=== PATIENT | female | born 1985 | race Caucasian/White ===

== ENCOUNTER 2018-02-06 13:27 | Inpatient (IN) ==
[2018-02-06 16:16] LABS: Hematocrit [HCT] 35.9 % (37.0-47.0); Hemoglobin [HGB] 12.2 g/dL (12.0-16.0); MEAN CORPUSCULAR HEMOGLOBIN 29.7 PG (27-31); MEAN CORPUSCULAR VOLUME 87.3 FL (81-99); MEAN PLATELET VOLUME 11.8 FL (7.4-12.2); RED BLOOD COUNT 4.11 10^6/uL (4.20-5.40)
[2018-02-06 16:27] LABS: BLOOD UREA NITROGEN 7 mg/dL (7-22); SERUM ALBUMIN 3.6 g/dL (3.5-4.8)
[2018-02-06] MEDS ORDERED: Lactated Ringers 1,000 ML PRIMARY IV ONE (16:32)
--- NOTE | 2018-02-06 16:51 | DI ---
US OB Biophys Profile w/NST,02/06/2018 3:28 PM: Clinical History: Abnormal nonstress test. Previous Exam: January 30, 2018 Findings: Multiple grayscale and color Doppler sonographic images are obtained through the pelvis, and demonstr ate a single live intrauterine gestation with detected Doppler heart tones of 146 beats per minute. T here is normal respiratory motion of the hemidiaphragms. Amniotic fluid index is normal measuring 15.3 cm. The placenta is grade 2 and anterior. Impression: Single live intrauterine gestation with biophysical profile of 05/31.
--- NOTE | 2018-02-06 16:56 | OB.PROGRES ---
Interval History: The patient is a 32-year-old white female at 37-5/7 weeks who called this morning stating that she didn't fill well over the weekend and took her blood pressure was mildly elevated. The patient also states that she had a headache yesterday which finally resolved last night after taking 2 doses of Tylenol. The patient was feeling much better this morning but called the office to inform us of the above. I asked the patient to come in for her nonstress test. On the way in to labor and delivery while driving, the patient developed a headache behind her right eye. She has not taken Tylenol today. The patient states that she just does not feel very well. No nausea or vomiting. No fever or chills. No abdominal pain. No regular contractions. Baby is moving well. The patient didn't bring her blood pressure monitor in from home to compare it to here. The patient does have a history of C-sections 2. She has an anterior placenta. She also had a 24-hour urine for total protein which was elevated this . The patient has a history of gestational hypertension with both her first and second full-term . She does not have a history of preeclampsia. However, now the patient does have proteinuria but has not had an elevated blood pressure this . Past medical history benign Past surgical history hand surgery, laparoscopic cholecystectomy, x2 No known drug allergies No alcohol, tobacco, no drugs Patient's last Pap smear was December 2015 and was normal with negative HPV.Patient did have an abnormal Pap smear in 2007 and then has had several Pap smears since that time that were normal. OB history with a history of a section for arrest of dilation in December 2013. Patient then had a repeat in May 2016. Patient also had gestational hypertension in her first and then the patient presented at the end of her last full-term with high blood pressures and had a at that time. The patient did not have a diagnosis of preeclampsia. Therefore, gestational hypertension. Objective - Cervical Exam Cervical Exam: Deferred [place]: No regular contractions. No significant contractions. Heart Rate Interpretation Category: Category II (Some accelerations but did not meet criteria of 15 x 15 with 2 and 20 minutes. Minimal to moderate variability. Biophysical profile completed and it was 8 out of 8. UMER was 15 cm. Placenta was grade 2.) - Labs CBC and BMP: 02/06/18 16:14 02/06/18 16:14 - Additional Details Additional Details: Nontoxic-appearing Lungs clear to auscultation Heart regular rate and rhythm Abdomen is gravid, soft, no guarding or rebound and nontender Reflexes are 1+ patellar tendon bilaterally No clonus Assessment and Plan - Assessment / Plan Additional Assessment/Plan Details: Assessment: IUP 37-5/7 weeks with proteinuria and history of gestational hypertension. Blood Pressures today have been normal. Blood pressures have been 109/72, 120/76, 125/66, her 72, 119/78. Patient called stating she was not feeling well this weekend but better this morning. This afternoon, the patient stated she had a headache behind her right eye but did not take Tylenol. No fever or chills. CBC and CMP are normal. White count is normal, no hemoconcentration and platelets are 189,000. Creatinine is 0.5 and LFTs are normal. Exam is normal. NST was nonreactive but there was some variability. Biophysical profile was 8 out of 8 with an UMER of 15 cm. Placenta was grade 2. The patient specific gravity was 1.020 and patient stated she was not drinking as much today. The patient has a history of 2 with the first being arrest of dilation and then the second for repeat . The patient does not appear toxic today but does have a headache. Her blood pressures are normal. Additionally, the initial NST was nonreactive but the biophysical profile was 8 out of 8. The patient was placed back on the monitor. Plan: I would like to observe the patient. Start an IV and give her a fluid bolus. I would like to then treat her headache and determine if the headaches resolved. I would like to check a CBC and a CMP in the morning. Continuous monitoring. If the patient is feeling much better this evening, the patient may be discharged but otherwise I will keep her until tomorrow morning. Blood pressures intermittently will be taken. Promethazine 25 mg tablet by mouth for nausea but also for treatment of headache along with 2 regular strength Tylenol will be administered
[2018-02-06] MEDS ORDERED: LIDOCAINE W/ SODIUM BICARB 0.5 ML SYR SUBD PRN (17:14)
[2018-02-06] MEDS ORDERED: ONDANSETRON 4 MG/2 ML VIAL IVP PRN (17:14)
[2018-02-06] MEDS ORDERED: Ondansetron ODT Tab 4 MG TAB PO PRN (17:14)
[2018-02-06] MEDS ORDERED: NORMAL SALINE 10 ML SYRINGE FLUSH IVP PRN (17:14)
[2018-02-06] MEDS: ACETAMINOPHEN 500 MG TABLET PO PRN (18:10)
[2018-02-06] MEDS: Promethazine Tab 25 MG TAB PO PRN ×2 (18:10→23:55)
[2018-02-06] MEDS: Lactated Ringers 1,000 ML PRIMARY IV SCH (19:24)
--- NOTE | 2018-02-06 23:23 | OB.PROGRES ---
Interval History: The patient states that her headache is improved but still present. It is not behind her eyes like it was. Initially the headache was behind her right eye and then moved to behind her left eye but now she just has a dull headache. She would rate it 4 out of 10. Her nausea is not constant now been intermittent. The patient is concerned that she has had these symptoms intermittently for the past month but more common leak over the past 10 days. She is glad that she is feeling better now compared to 4-6 hours ago. Objective - Cervical Exam Cervical Exam: Deferred Heart Rate Interpretation Category: Category I (Good accelerations.) - Labs CBC and BMP: 02/06/18 16:14 02/06/18 16:14 - Vital Signs Last Taken Vital Signs: Vital Signs - Last Taken Temperature 98.3 F 02/06/18 18:45 Pulse Rate 85 02/06/18 22:00 Respiratory Rate 16 02/06/18 18:45 Blood Pressure 116/67 02/06/18 22:00 - Additional Details Additional Details: Nontoxic-appearing Assessment and Plan - Assessment / Plan Additional Assessment/Plan Details: Assessment: IUP 37-5/7 weeks with headache that is improving with history of gestational hypertension with both pregnancies but blood pressures have been normal today. The patient also has proteinuria in that she has had for multiple weeks now. 24 urine for total protein was elevated at 344 mg. Labs were normal earlier. Plan: Continue to observe and check a CBC, CMP, amylase and lipase in the morning. Evaluate how the patient is feeling in the morning. The patient informed me that she would like a repeat if she is still not feeling well. She is concerned that something possibly may be occurring that is not good. The patient is glad that she is feeling better and would like to wait until the morning to determine how she is feeling. Blood pressure checks will continue intermittently and continuous monitoring.
[2018-02-07] MEDS: Lactated Ringers 1,000 ML PRIMARY IV SCH ×2 (03:34→11:24)
[2018-02-07] MEDS: ACETAMINOPHEN 500 MG TABLET PO PRN (03:35)
[2018-02-07] MEDS ORDERED: ACETAMINOPHEN 500 MG TABLET PO ONE (03:43)
[2018-02-07] MEDS ORDERED: ACETAMINOPHEN 500 MG TABLET PO PRN (03:44)
[2018-02-07 08:51] LABS: BASOPHILS # (AUTO) 0.03 10*3/UL; BASOPHILS % (AUTO) 0.3 % (0-1); EOSINOPHILS # (AUTO) 0.26 10*3/UL; Hematocrit [HCT] 36.5 % (37.0-47.0); Hemoglobin [HGB] 12.3 g/dL (12.0-16.0); LYMPHOCYTES # (AUTO) 2.21 10*3/uL; MEAN CORPUSCULAR HEMOGLOBIN 29.5 PG (27-31); MEAN CORPUSCULAR HGB CONC 33.7 g/dL (33-37); MEAN CORPUSCULAR VOLUME 87.5 FL (81-99); MEAN PLATELET VOLUME 11.9 FL (7.4-12.2); MONOCYTES % (AUTO) 6.8 % (5-15); NEUTROPHILS # (AUTO) 5.67 10*3/UL; NEUTROPHILS % (AUTO) 64.5 % (50-80); RED BLOOD COUNT 4.17 10^6/uL (4.20-5.40)
[2018-02-07 08:52] LABS: PLATELET MORPHOLOGY COMMENT NORMAL MORPHOLOGY (NORM); RBC MORPHOLOGY COMMENT NORMAL MORPHOLOGY (NORM); WBC MORPHOLOGY COMMENT NORMAL MORPHOLOGY (NORM)
[2018-02-07] MEDS ORDERED: Prenatal Multivitamin Tab 1 TAB TAB PO SCH (09:00)
[2018-02-07 09:07] LABS: BLOOD UREA NITROGEN 4 mg/dL (7-22); SERUM ALBUMIN 3.5 g/dL (3.5-4.8)
[2018-02-07] MEDS: CALCIUM CARBONATE 500 MG (TUMS) CHEWABLE TABLET PO PRN ×2 (09:08→11:16)
[2018-02-07 09:20] LABS: LIPASE 93 IU/L (23-300)
[2018-02-07] MEDS ORDERED: TERBUTALINE SULFATE 1 MG/1 ML SDV SUBCUT PRN (12:46)
[2018-02-07] MEDS ORDERED: CefOXitin Inj 2 GM in Sodium Chloride 0.9% 100 ML IV PRN (12:46)
[2018-02-07] MEDS ORDERED: Nalbuphine Inj 20 MG/ML Ampule IVP PRN ×2 (12:46→15:37)
[2018-02-07] MEDS ORDERED: LIDOCAINE W/ SODIUM BICARB 0.5 ML SYR SUBD PRN (12:46)
[2018-02-07] MEDS ORDERED: Phenylephrine Inj 50 MCG in Normal Saline Flush 0.5 ML IVP PRN (12:46)
[2018-02-07] MEDS ORDERED: ePHEDrine Inj 5 MG in Normal Saline Flush 1 ML IVP PRN (12:46)
[2018-02-07] MEDS ORDERED: NORMAL SALINE 10 ML SYRINGE FLUSH IVP PRN (12:46)
[2018-02-07] MEDS ORDERED: MISOPROSTOL 200 MCG TABLET RECTAL PRN (12:46)
[2018-02-07] MEDS ORDERED: Famotidine Inj 20 MG in Normal Saline Flush 10 ML IVP PRN ×5 (12:46→15:37)
[2018-02-07] MEDS ORDERED: CITRIC ACID/SODIUM CITRATE 30 ML CUP PO PRN (12:46)
[2018-02-07] MEDS ORDERED: CALCIUM CARBONATE 500 MG (TUMS) CHEWABLE TABLET PO PRN (12:46)
[2018-02-07] MEDS ORDERED: NALOXONE 0.4 MG/1 ML VIAL IVP PRN (12:46)
[2018-02-07] MEDS ORDERED: ONDANSETRON 4 MG/2 ML VIAL IVP PRN (12:46)
[2018-02-07] MEDS ORDERED: Carboprost Inj 250 MCG/ML AMP IM PRN (12:46)
[2018-02-07] MEDS ORDERED: Lidocaine 1% 10 MG/ML - 20 ML VIAL SUBCUT PRN (12:46)
[2018-02-07] MEDS ORDERED: BUTORPHANOL TARTRATE 2 MG/1 ML VIAL IVP PRN (12:46)
[2018-02-07] MEDS ORDERED: Metoclopramide Inj 10 MG/2 ML VIAL IV PRN (12:46)
[2018-02-07] MEDS ORDERED: fentaNYL Inj 100 MCG/2 ML VIAL IV PRN (12:46)
[2018-02-07] MEDS ORDERED: LIDOCAINE HCL 2 % 10 ML JELLY URO-JECT TOPICAL PRN (12:46)
[2018-02-07] MEDS ORDERED: diphenhydrAMINE 50 MG/1 ML VIAL IVP PRN (12:46)
[2018-02-07] MEDS ORDERED: METHYLERGONOVINE MALEATE 0.2 MG/1 ML VIAL IM PRN (12:46)
[2018-02-07] MEDS ORDERED: Naloxone Inj 0.01 MG in Normal Saline Flush 1 ML IVP PRN (12:46)
[2018-02-07] MEDS ORDERED: OXYTOCIN 10 UNIT/1 ML IM PRN (12:46)
--- NOTE | 2018-02-07 12:53 | OB.PROGRES ---
Interval History: The patient states that her headache is resolved. She still is slightly nauseated. She actually had eggs and Haitian dose for breakfast and then at emesis. The patient would really like a section because she is concerned that she is not feeling well and this is secondary to her . Objective - Cervical Exam Cervical Exam: Deferred Heart Rate Interpretation Category: Category I - Labs CBC and BMP: 02/07/18 08:44 02/07/18 05:00 - Vital Signs Last Taken Vital Signs: Vital Signs - Last Taken Temperature 97.6 F 02/07/18 08:58 Pulse Rate 81 02/07/18 11:30 Respiratory Rate 16 02/07/18 08:58 Blood Pressure 117/72 02/07/18 11:30 Pulse Ox 98 02/07/18 11:30 - Additional Details Additional Details: Abdomen is soft and gravid and nontender. One blood pressure was 149/90 this morning at 8:30 AM. Assessment and Plan - Assessment / Plan Additional Assessment/Plan Details: Assessment: IUP 37-6/7 weeks with history of 2 sections. Patient with preeclampsia by elevated blood pressure and also proteinuria. Patient also has a history of gestational hypertension without preeclampsia. Patient has not felt well intermittently for several days. Her headache has resolved now. Again, the patient did have the elevated blood pressure of 149/ 90 this morning. She also has the proteinuria. Her liver function tests, platelets and creatinine were normal. She was mildly hemoconcentrated since the patient's H&H was slightly increased from yesterday and the patient has received IV hydration since yesterday afternoon. Plan: The risk, benefits, alternatives and indication of a repeat section were discussed with the patient and for the indication of preeclampsia. The patient is very comfortable having the today. The risks, but not limited to, of infection, bleeding, pain, hemorrhage, blood transfusion with associated risks, damage to bowel, bladder, nerve, vessel, ureter, nicking the baby, blood clots to the legs or lungs, risk of necrotizing fasciitis necessitating transfer of patient to a tertiary care hospital, and the low risk of were discussed with the patient. Consent forms have been signed previously. Anesthesia and the operating room have been notified. The plan is to do a repeat section this afternoon about 1415 hrs.
[2018-02-07] MEDS ORDERED: Oxytocin 20 Units + LR 20 UNIT/1,000 ML BAG IV SCH ×2 (13:00→15:45)
[2018-02-07] MEDS ORDERED: Lactated Ringers-OB Dept 1,000 ML PRIMARY IV SCH (13:00)
[2018-02-07 13:38] LABS: Hemoglobin [HGB] 12.1 g/dL (12.0-16.0); MEAN CORPUSCULAR HEMOGLOBIN 29.7 PG (27-31); MEAN CORPUSCULAR HGB CONC 33.6 g/dL (33-37); MEAN CORPUSCULAR VOLUME 88.2 FL (81-99); MEAN PLATELET VOLUME 11.7 FL (7.4-12.2); RED BLOOD COUNT 4.08 10^6/uL (4.20-5.40)
[2018-02-07] MEDS ORDERED: ePHEDrine Inj 50 MG/ML AMP ONE (13:41)
[2018-02-07] MEDS ORDERED: OXYTOCIN 10 UNIT/1 ML ONE (13:41)
[2018-02-07] MEDS ORDERED: MORPHINE SULFATE/PF 10 MG/10 ML AMPULE ONE (13:43)
--- NOTE | 2018-02-07 14:04 | OB.OP.NOTE ---
Operative Report Surgeon: Arie Sql Dba: Kota Vivar MD Anesthesia Type: Regional (Spinal with Duramorph) Anesthesia Provider: Rene Ayon CRNA Surgery Date: 02/07/18 Preoperative Diagnosis: IUP 37-6/7 weeks, preeclampsia without signs or symptoms of severe preeclampsia, history of gestational hypertension, history of section 2, patient desires repeat section Postoperative Diagnosis: Same Procedure: Repeat low transverse section Estimated Blood Loss (mL): 700 Fluids: 1600 mL LR with Pitocin. 150 mL of clear yellow urine. Mefoxin 2 g IV preoperatively Complications: None apparent Findings at Surgery: Male infant with Apgars of 9 and 9. Weight 6 lbs. 13 oz. ABG showed a pH of 7.29, PCO2 of 45, HCO3 of 22, base excess of -5 Normal appearing ovaries bilaterally and normal-appearing uterus and fallopian tubes Indications for the Procedure: The patient is a 32-year-old at 37-6/7 weeks who has not been feeling well intermittently over the past 2 weeks. Labs have been normal except for mild hemoconcentration. However, the patient does have proteinuria this . This morning the patient had an elevated blood pressure of 149/90. Patient's liver function tests and renal function tests of normal. Patient was given a diagnosis of preeclampsia. The patient desires a repeat section today secondary to not feeling well over the past 2 weeks and is concerned that it is secondary to the and something is not going well. The risks, benefits, alternatives and indication of a repeat section were discussed with the patient and the patient signed the consent forms. Patient does not desire tubal ligation. Of note, the patient did have a headache when she presented yesterday but today the headache did resolve. Description of Procedure: After the risks, benefits, alternatives and indication of a repeat section was discussed with the patient and the consent forms were signed. The patient was brought to the operating room. The patient underwent spinal anesthesia with Duramorph in the usual fashion. The patient was then placed in the dorsal supine position with a leftward tilt. A Avitia catheter was placed. The patient was then prepped and draped sterilely. A Pfannenstiel skin incision was made over the old incision site. I worked my way down to the fascia using the Bovie. The fascia was nicked in the midline and on either side of the midline. The fascial incision was then extended using the Yankauer as a retractor to retract the fascia off of the rectus muscle and then the Bovie to incise the fascia. Loa clamps were then laced on either side of the midline on the superior fascia and the fascia was dissected off of the rectus muscles using the Bovie and bluntly. The same was done inferiorly. Attention was then turned to the rectus muscle trying to find a diastases so that we could enter the peritoneum. There was a small area that we are able to get our digits beneath and then Bovie to open up the area. Peritoneum was then entered bluntly. The peritoneum was actually Bovie to open up a little bit more secondary to some scar tissue. I then inserted my hand to ensure that there were no adhesions between the anterior abdominal wall and the uterus. There were not. The Anmol retractor was then placed. The lower uterine segment was then visualized. There was some moderate scar tissue inferiorly. It appeared as though the bladder was not within the scar tissue. A low transverse uterine incision in an arc was then completed. With several passes, membranes were visualized and then clear fluid was obtained. The uterine incision was then stretched. One area on the patient's right side was incised using the bandage scissors to extend the incision. I then placed my hand along the inside wall of the uterus along the baby's head. The baby was in the ALISON presentation. I was then able to deliver the baby's head and the mouth and nose were bulb suctioned. There was a nuchal cord 2 which was reduced. The baby's shoulders and then body was delivered. Delayed cord clamping of about 35 seconds was allowed for. The baby had a lusty cry. The cord was then clamped and cut. A section of cord was obtained for cord gases and then cord blood was obtained. The placenta was then delivered. Placenta was anterior. Membranes were trailing but did deliver. The uterus was then exteriorized and a lap sponge was placed around the fundus of the uterus and then the uterus was cleared of any clot or debris 3 times. There was good hemostasis. The low transverse uterine incision was then closed using 0 Vicryl suture in a running locking fashion starting the left side and the left angle of the incision to the right side. An imbricating second layer of 0 Vicryl suture was then used. There was good hemostasis. Irrigation posterior to the uterus was clear. Was irrigated and then suctioned. The uterine incision was then examined again and was hemostatic. The ovaries were examined bilaterally and appeared normal. The fallopian tubes appeared normal bilaterally. The uterus appeared normal. The uterus was placed back into the abdomen. The right gutter was irrigated and suctioned. The left gutter was irrigated and suctioned. The Anmol retractor was then removed after examining the uterine incision one more time and appeared hemostatic. Kelsey clamps were then used to grasp the peritoneum on either side of the midline and then the peritoneum was closed starting superiorly using 3-0 Vicryl suture. The fascia was then examined and appeared to be hemostatic. I used looped 0 PDS suture starting on the patient's left side and grasping the fascia at the angle and then closed the fascia in a running fashion. At the right angle of the fascia one of the arms of the suture was cut and the other was pulled through and then the suture was tied. The fascia incision appeared to be closed well and intact. The subcutaneous tissue was then irrigated. The subcutaneous tissue was then closed using 3-0 Vicryl suture in a running fashion. The subcuticular skin was closed with 3-0 Stratafix suture starting in the midline and then working to the right and left angle of the skin incision. Skin prep was then used and then Steri-Strips were applied across the incision. At this time, the radiofrequency wand was used to ensure that there were no instruments or sponges left in place. The radiofrequency test was normal. Previously, sponge lap and needle counts were correct 2. A Silverlon dressing was placed over the incision and then an ABD pad was placed and then paper tape over the incision. The uterus was then expressed of any clot or debris. Small amount of dark blood was expressed. No clot. The cervix was closed. The uterus was very firm and below the umbilicus. The patient would recover in the PACU and then in her was room. Plan: The patient would recover in the PACU and then her room.
[2018-02-07] MEDS ORDERED: Lactated Ringers 1,000 ML PRIMARY IV ONE (14:26)
--- NOTE | 2018-02-07 15:30 | CRNA.PROCE ---
Central Neuraxis Block Placemt - - Safety Measures: Time Out Taken, Site Verified - - Type of Block: Subarachnoid Reason for Block: Surgical Moniters Used During Block: EKG, SPO2, NIBP Positioning: Sitting Skin Prep Used: Betadine Draped: Yes Introducer User: 23 Gauge Spinal Needle Used: 25 Yamileth 80 mm Local Anesthetic - Enter Amount Used in Comment Field: 0.75 % Bupivacaine with Dextrose (ml): Yes (15mg) Additive Used - Enter Amount Used in Comment Field: Preservative Free Morphine ( mg): Yes (0.15 mg) Bioclusive Dressing Applied: No Anesthesia Time - Other Weight: 107.955 kg Height: 5 ft 8 in Body Mass Index (BMI): 36.1
--- NOTE | 2018-02-07 15:31 | CRNA.PROGR ---
Anesthesia Recovery Phase I - Post Anesthesia Evaluation Patient's Condition on Arrival in Phase I: Stable Pain Level: 0
--- NOTE | 2018-02-07 15:31 | CRNA.PROGR ---
Anesthesia Time - - Start date: 02/07/18 End date: 02/07/18 - Procedure/Recovery Time Anesthesia : Time In: 14:02 Anesthesia : Time Out: 15:25 Anesthesia : Total Time: 83 - Total Anesthesia Time Total Anesthesia Time (minutes): 83 - Other Weight: 107.955 kg Height: 5 ft 8 in Body Mass Index (BMI): 36.1 Physical Status: P2 Anesthesia Type: Spinal Block Obstetrics: C/S anesthesia only
[2018-02-07] MEDS ORDERED: diphenhydrAMINE 50 MG/1 ML VIAL IV PRN (15:37)
[2018-02-07] MEDS ORDERED: diphenhydrAMINE 25 MG CAPSULE PO PRN (15:37)
[2018-02-07] MEDS ORDERED: Naloxone Inj 0.01 MG, Sodium Chloride 0.9% vial 1 ML IVP PRN ×2 (15:37)
[2018-02-07] MEDS ORDERED: DIPH,PERTUSS,TET(ADACEL) VAC/PF 0.5 ML (Tdap) IM ONE (15:37)
[2018-02-07] MEDS ORDERED: LANOLIN HPA 40 GM TUBE TOPICAL PRN (15:37)
[2018-02-07] MEDS: KETOROLAC 15 MG/1 ML VIAL IVP SCH ×2 (17:05→22:51)
[2018-02-07] MEDS: NORMAL SALINE 10 ML SYRINGE FLUSH IVP PRN (17:06)
[2018-02-07] MEDS: ONDANSETRON 4 MG/2 ML VIAL IVP PRN ×2 (17:17→21:45)
[2018-02-08] MEDS: ONDANSETRON 4 MG/2 ML VIAL IVP PRN (02:22)
[2018-02-08] MEDS: CALCIUM CARBONATE 500 MG (TUMS) CHEWABLE TABLET PO PRN ×2 (02:22→09:56)
[2018-02-08] MEDS: KETOROLAC 15 MG/1 ML VIAL IVP SCH ×3 (04:59→16:28)
[2018-02-08 05:16] LABS: Hematocrit [HCT] 32.6 % (37.0-47.0); Hemoglobin [HGB] 10.8 g/dL (12.0-16.0); MEAN CORPUSCULAR HEMOGLOBIN 29.4 PG (27-31); MEAN CORPUSCULAR HGB CONC 33.1 g/dL (33-37); MEAN CORPUSCULAR VOLUME 88.8 FL (81-99); MEAN PLATELET VOLUME 11.9 FL (7.4-12.2); RED BLOOD COUNT 3.67 10^6/uL (4.20-5.40)
[2018-02-08 05:29] LABS: BLOOD UREA NITROGEN 4 mg/dL (7-22); SERUM ALBUMIN 2.8 g/dL (3.5-4.8); Uric Acid 3.1 mg/dl (2.5-6.2)
[2018-02-08] MEDS ORDERED: Lactated Ringers-OB Dept 1,000 ML ONE (05:58)
[2018-02-08] MEDS: DOCUSATE 100 MG CAPSULE PO SCH ×2 (09:55→21:39)
[2018-02-08] MEDS: oxyCODONE-ACETAMINOPHEN 5-325 TAB PO PRN ×3 (09:55→21:39)
[2018-02-08] MEDS: Prenatal Multivitamin Tab 1 TAB TAB PO SCH (09:55)
[2018-02-08] MEDS: NORMAL SALINE 10 ML SYRINGE FLUSH IVP PRN ×2 (10:58→16:28)
--- NOTE | 2018-02-08 11:15 | OB.PROGRES ---
Subjective Post Op Day: 1 Pain Management: IV Toradol Avitia Catheter: No Flatus: Yes Diet: Regular [place] Feeding Method: Exculsively Ambulating: Yes Concerns / Additional Information: The patient states that she is feeling much better today. She does not have the same symptoms that she had prior to delivering. Objective - General General Appearance: POSITIVE: No Acute Distress, Cooperative - Cardiovacular Cardiovascular Exam: POSITIVE: RRR Edema: +1 Pedal Edema Extremities: Negative Jovi's - Bilaterally - Respiratory Respiratory Exam: POSITIVE: Clear to Auscultation - Bilaterally - Abdomen Bowel Sounds: Present Abdominal Wound Assessment: Silverlone Dressing, Well Approximated Assesstment / Plan Assessment / Plan: Assessment: Postoperative day #1 status post repeat section or preeclampsia. Labs normal. Platelets are 154,000. Blood pressures have been normal. Patient feeling much better. Plan: Continue care Ambulate several times today. Observe closely
[2018-02-08] MEDS: D5-LR 1,000 ML PRIMARY IV SCH (15:12)
[2018-02-08] MEDS: IBUPROFEN 800 MG TABLET PO PRN (23:01)
[2018-02-09] MEDS: oxyCODONE-ACETAMINOPHEN 5-325 TAB PO PRN ×6 (01:49→21:08)
[2018-02-09] MEDS: IBUPROFEN 800 MG TABLET PO PRN ×3 (05:18→21:14)
[2018-02-09] MEDS: Prenatal Multivitamin Tab 1 TAB TAB PO SCH (09:08)
[2018-02-09] MEDS: DOCUSATE 100 MG CAPSULE PO SCH ×2 (09:08→21:10)
--- NOTE | 2018-02-09 13:56 | OB.PROGRES ---
Subjective Post Op Day: 2 Pain Management: PO Avitia Catheter: No Flatus: Yes Diet: Regular Feeding Method: Exculsively Ambulating: Yes Concerns / Additional Information: The patient is doing well and feeling pretty well. She would like to stay until tomorrow morning. No bowel movement yet. Objective - General General Appearance: POSITIVE: No Acute Distress, Cooperative - Cardiovacular Cardiovascular Exam: POSITIVE: RRR Edema: +1 Pedal Edema Extremities: Negative Jovi's - Bilaterally - Respiratory Respiratory Exam: POSITIVE: Clear to Auscultation - Bilaterally - Abdomen Bowel Sounds: Present (Abdomen soft and appropriately tender. No guarding or rebound.) Abdominal Wound Assessment: Silverlone Dressing, Well Approximated Assesstment / Plan Assessment / Plan: Assessment: Postoperative #2 status post repeat section for preeclampsia. Blood pressures have been good. Patient feeling well. Plan: Will discharge home tomorrow Continue care I would like the patient to ambulate at least 3 times today and the halls.
[2018-02-10] MEDS: oxyCODONE-ACETAMINOPHEN 5-325 TAB PO PRN ×6 (00:47→21:22)
[2018-02-10] MEDS: IBUPROFEN 800 MG TABLET PO PRN ×3 (05:05→21:23)
[2018-02-10] MEDS: Prenatal Multivitamin Tab 1 TAB TAB PO SCH (08:26)
[2018-02-10] MEDS: DOCUSATE 100 MG CAPSULE PO SCH ×2 (08:27→21:23)
[2018-02-10] MEDS: CALCIUM CARBONATE 500 MG (TUMS) CHEWABLE TABLET PO PRN ×2 (08:27→21:34)
[2018-02-10 10:56] LABS: BASOPHILS # (AUTO) 0.02 10*3/UL; BASOPHILS % (AUTO) 0.3 % (0-1); EOSINOPHILS # (AUTO) 0.52 10*3/UL; EOSINOPHILS % (AUTO) 6.8 % (0-8); Hematocrit [HCT] 33.8 % (37.0-47.0); Hemoglobin [HGB] 11.3 g/dL (12.0-16.0); LYMPHOCYTES # (AUTO) 1.89 10*3/uL; MEAN CORPUSCULAR HEMOGLOBIN 29.8 PG (27-31); MEAN CORPUSCULAR HGB CONC 33.4 g/dL (33-37); MEAN CORPUSCULAR VOLUME 89.2 FL (81-99); MONOCYTES # (AUTO) 0.56 10*3/UL (0.3-0.8); MONOCYTES % (AUTO) 7.3 % (5-15); NEUTROPHILS # (AUTO) 4.66 10*3/UL; NEUTROPHILS % (AUTO) 60.6 % (50-80); RED BLOOD COUNT 3.79 10^6/uL (4.20-5.40)
[2018-02-10 10:57] LABS: PLATELET MORPHOLOGY COMMENT NORMAL MORPHOLOGY (NORM); RBC MORPHOLOGY COMMENT NORMAL MORPHOLOGY (NORM); WBC MORPHOLOGY COMMENT NORMAL MORPHOLOGY (NORM)
--- NOTE | 2018-02-10 10:57 | OB.PROGRES ---
Subjective Post Op Day: 3 Pain Management: PO Avitia Catheter: No Flatus: Yes Diet: Regular Feeding Method: Exculsively Ambulating: Yes Concerns / Additional Information: Patient is passing flatus. No headache. Patient feels well. Objective - General General Appearance: POSITIVE: No Acute Distress, Cooperative - Cardiovacular Cardiovascular Exam: POSITIVE: RRR Edema: +1 Pedal Edema Extremities: Negative Jovi's - Bilaterally - Respiratory Respiratory Exam: POSITIVE: Clear to Auscultation - Bilaterally - Reflexes Clonus (indicate extremity in comment field): Absent Deep Tendon Reflex (indicate extremity in comment field): Normal +2 - Abdomen Abdominal Wound Assessment: Silverlone Dressing, Well Approximated (To the right side of the patient Silverlon dressing the patient has some abrasions and blisters secondary to the paper tape from the initial covering from the surgery. ) Other Abdominal Exam Details: Abdomen soft without guarding or rebound. Appropriately tender Assesstment / Plan Assessment / Plan: Assessment: Postoperative day #3 status post repeat section for preeclampsia. The patient has had a few elevated blood pressures this morning and one elevated blood pressure last night. The patient is asymptomatic. The patient does have some blisters and irritation from the stretched paper tape that was placed right after the surgery. I do not believe that this is from an adhesive allergy but more secondary to the stretch of the tape causing irritation. Plan: I will check a CBC and a CMP Serial blood pressures I may end up observing the patient overnight secondary to her elevated blood pressures. If her blood pressures remain elevated, the patient may need an antihypertensive for short duration. The patient lives a half hour from here and therefore I will be more conservative and perhaps observe the patient depending upon how the blood pressure checks and the labs are. Patient expressed understanding.
[2018-02-10 11:07] LABS: BLOOD UREA NITROGEN 7 mg/dL (7-22); SERUM ALBUMIN 3.2 g/dL (3.5-4.8)
[2018-02-10] MEDS: SILVER SULFADIAZINE 1% 25 GM CREAM TOPICAL SCH (12:38)
--- NOTE | 2018-02-10 12:46 | OB.PROGRES ---
Assesstment / Plan Assessment / Plan: The patient does feel well without a headache although her blood pressures have been mildly elevated. The last blood pressure was 132/91. No headache. Her H& H was similar to her postop H&H 11 and 33. Platelets are 172,000, creatinine was 0.7 and liver function tests were normal. Since the patient lives out of town, I would like to keep the patient here overnight to make sure that her blood pressures aren't continuing to elevate. I will also check a CBC and a CMP in the morning. If her blood pressures remained mildly elevated and her labs are normal and the patient feels well, I may place the patient on a calcium channel angelique for a short time as the patient is breast-feeding. The patient agrees with this plan.
[2018-02-11] MEDS: oxyCODONE-ACETAMINOPHEN 5-325 TAB PO PRN ×3 (01:38→09:35)
[2018-02-11 05:09] LABS: BASOPHILS # (AUTO) 0.02 10*3/UL; BASOPHILS % (AUTO) 0.3 % (0-1); EOSINOPHILS # (AUTO) 0.49 10*3/UL; EOSINOPHILS % (AUTO) 7.1 % (0-8); Hematocrit [HCT] 34.9 % (37.0-47.0); Hemoglobin [HGB] 11.5 g/dL (12.0-16.0); LYMPHOCYTES # (AUTO) 2.12 10*3/uL; MEAN CORPUSCULAR HEMOGLOBIN 29.3 PG (27-31); MEAN PLATELET VOLUME 11.9 FL (7.4-12.2); MONOCYTES # (AUTO) 0.52 10*3/UL (0.3-0.8); MONOCYTES % (AUTO) 7.5 % (5-15); NEUTROPHILS # (AUTO) 3.71 10*3/UL; NEUTROPHILS % (AUTO) 53.9 % (50-80); RED BLOOD COUNT 3.92 10^6/uL (4.20-5.40)
[2018-02-11 05:20] LABS: BLOOD UREA NITROGEN 9 mg/dL (7-22); BUN/CREATININE RATIO 12.85 (6-20); SERUM ALBUMIN 3.3 g/dL (3.5-4.8)
[2018-02-11 05:22] LABS: PLATELET MORPHOLOGY COMMENT NORMAL MORPHOLOGY (NORM); RBC MORPHOLOGY COMMENT NORMAL MORPHOLOGY (NORM); WBC MORPHOLOGY COMMENT NORMAL MORPHOLOGY (NORM)
[2018-02-11] MEDS: SILVER SULFADIAZINE 1% 25 GM CREAM TOPICAL SCH ×2 (06:29→08:13)
[2018-02-11] MEDS: IBUPROFEN 800 MG TABLET PO PRN (07:46)
[2018-02-11 08:05] VITALS: BP 125/85; RESP 17; TEMP 97.9; O2SAT 96
--- NOTE | 2018-02-11 09:14 | OB.PROGRES ---
Subjective Post Op Day: 4 Pain Management: PO Avitia Catheter: No Flatus: Yes Diet: Regular Feeding Method: Exculsively Ambulating: Yes Concerns / Additional Information: The patient feels well and would like to go home. No headache. Objective - General General Appearance: POSITIVE: No Acute Distress, Cooperative - Cardiovacular Cardiovascular Exam: POSITIVE: RRR Edema: +1 Pedal Edema Extremities: Negative Jovi's - Bilaterally - Respiratory Respiratory Exam: POSITIVE: Clear to Auscultation - Bilaterally - Abdomen Abdominal Wound Assessment: Silverlone Dressing (Abdomen soft and appropriately tender without guarding or rebound) Assesstment / Plan Assessment / Plan: Assessment: Postoperative day #4 status post repeat section at 37-6/7 weeks for preeclampsia. The patient has felt well since the delivery. Prior to the delivery the patient was admitted for observation secondary to not feeling well intermittently for the previous 7-10 days. The patient's blood pressures for the most part are normal. Since yesterday afternoon the patient has had 2 mildly elevated blood pressures but the other several blood pressures have been normal. Repeat CBC and CMP today were normal with normal platelets, normal creatinine and normal liver function tests. H&H is 11 and 34 and not hemoconcentrated. Plan: Discharge home today Patient should have a blood pressure check on Tuesday up in [place], [place] at our [facility] clinic there. Patient expressed understanding. Patient then has a follow-up appointment with me on 02/15/2018.
--- NOTE | 2018-02-11 09:22 | DCSUMMARY ---
Hospitalization Summary Admit Date: 02/06/18 Discharge Date: 02/11/18 Primary Diagnosis:: intrauterine at 37-6/7 weeks Secondary Diagnosis:: Preeclampsia Primary Surgery and Date: 02/07/2018. Repeat low transverse section Delivery Type: (Repeat section) Hospital Course: The patient underwent 23 hour observation on 02/06/2018 for not feeling well with a history of gestational hypertension and proteinuria this . The patient did have an elevated blood pressure on 02/07/2018 and with her not feeling well, the patient underwent a repeat section with the diagnosis of preeclampsia. The patient did have a headache but this resolved. Postoperatively, the patient immediately felt better and has felt well throughout the postoperative and course. The patient did have some mild elevated blood pressures on postop day #2 and 3 and was kept here one more day. Liver function tests and renal function tests were always normal. Platelets decreased to 154,000 on postop day #1 but then increased over the next 3 days. On the day of discharge, the patient was feeling very well. Labs were normal. Plan was for the patient to have a blood pressure check on 02/13/2018 and then will see me on 02/15/2018. Usual precautions were discussed with the patient. / Postop Complications: The patient underwent 23 hour observation on 02/06/2018 for not feeling well with a history of gestational hypertension and proteinuria this . The patient did have an elevated blood pressure on 02/07/2018 and with her not feeling well, the patient underwent a repeat section with the diagnosis of preeclampsia. The patient did have a headache but this resolved. Postoperatively, the patient immediately felt better and has felt well throughout the postoperative and course. The patient did have some mild elevated blood pressures on postop day #2 and 3 and was kept here one more day. Liver function tests and renal function tests were always normal. Platelets decreased to 154,000 on postop day #1 but then increased over the next 3 days. On the day of discharge, the patient was feeling very well. Labs were normal. Plan was for the patient to have a blood pressure check on 02/13/2018 and then will see me on 02/15/2018. Usual precautions were discussed with the patient. [place] Complications: None apparent Exam - Vitals Vital Signs: Vital Signs Temperature 97.9 F Temperature Source Oral Pulse Rate [Pulse Oximeter] 84 Pulse Rate [Apical] 81 Pulse Rate [Right] 80 Pulse Rate 77 Respiratory Rate 17 Blood Pressure [Left Arm] 132/89 Blood Pressure [Right Arm] 125/85 Blood Pressure 132/87 Pulse Ox 96 Oxygen Flow Rate .5 Oxygen Delivery Method Room Air Height 5 ft 8 in Weight 238 lb
[2018-02-11] MEDS: Prenatal Multivitamin Tab 1 TAB TAB PO SCH (09:35)
[2018-02-11] MEDS: DOCUSATE 100 MG CAPSULE PO SCH (09:35)
== END 2018-02-11 10:36 | disposition home or self-care (01) | DRG 766 ==
LOC: OBOP 13:27 → OBIP 13:27
PROVIDERS: ADMIT Obstetrics & Gynecology; ATTEND Obstetrics & Gynecology